=== PATIENT | male | born 1990 | race Hispanic/Latino ===

== ENCOUNTER 2023-03-28 09:36 | Inpatient (IN) | payer SELFPAY ==
[2023-03-28] MEDS ORDERED: INSULIN REGULAR IN 0.9 % NACL 100 UNITS/100 ML BAG ONE (09:49)
[2023-03-28] MEDS ORDERED: NS 0.9% w/ 20 MEQ KCL 1,000 ML ONE (09:57)
[2023-03-28] MEDS ORDERED: D5 1/2 NS w/20 mEq KCL 1,000 ML ONE (11:05)
[2023-03-28 11:35] LABS: Hemoglobin 14.1 g/dL (14.0-18.0); Mean Corpuscular HGB CONC 34.4 g/dL (32.0-36.0); Mean Corpuscular Hemoglobin 30.7 pg (27.0-31.0); Mean Corpuscular Volume 89.3 fl (78.0-98.0); Mean Platelet Volume 7.7 fL (7.4-10.4); Platelet Count 338 10x3/uL (130-400); RBC Distribution Width 12.2 % (11.5-14.5); White Blood Cell (WBC) Count 25.5 10x3/uL (4.8-10.8)
[2023-03-28] MEDS ORDERED: Dextrose 50% Abboject 50 ML SYRINGE SLOW IVP PRN (11:35)
[2023-03-28] MEDS ORDERED: Electrolyte Replacement Protocol IVPB SCH (11:35)
[2023-03-28] MEDS ORDERED: Dextrose 5 %-0.45 % NaCl 1,000 ML IV PRN (11:35)
[2023-03-28 11:36] LABS: Bacteria/HPF None Seen HPF (None Seen); Bilirubin Negative (Negative); Blood, Urine 1+ (Negative); Clarity Clear (Clear); Glucose, Urine (Dipstick) Greater than 1000 mg/dL (Negative); Ketone, Urine Greater than 150 mg/dL (Negative); Leukocyte Negative Leu/uL (Negative); Nitrite Negative (Negative); Protein, Urine (Dipstick) 30 mg/dL (Neg-Trace); RBC/HPF 0-3 HPF (0-3); Specific Gravity, Urine 1.018 (1.002-1.036); Squamous Epithelial None Seen HPF (0-3); Urobilinogen Normal mg/dL (Less than 2); WBC/HPF 0-3 HPF (0-3)
[2023-03-28] MEDS ORDERED: Calcium Carbonate 500 MG ChewTAB PO PRN (11:37)
[2023-03-28] MEDS ORDERED: Ondansetron PF 4 MG/2 ML Vial IVP PRN (11:37)
[2023-03-28] MEDS ORDERED: Acetaminophen 325 MG TAB PO PRN (11:37)
[2023-03-28] MEDS ORDERED: Ondansetron ODT 4 MG TAB PO PRN (11:37)
[2023-03-28] MEDS ORDERED: HUMULIN R 100 UNITS in Sodium Chloride 0.9% 100 ML IVPB SCH (11:45)
[2023-03-28 11:47] LABS: Phosphorus 2.7 mg/dL (2.3-4.7)
[2023-03-28 11:48] LABS: BUN (Urea Nitrogen) 19 mg/dL (8.9-20.6); Calc. Creatinine Clearance 0 mL/min (70-130); Calcium 7.9 mg/dL (7.8-10.44); Chloride 111 mmol/L (98-107); Estimated GFR 86; Glucose 195 mg/dL (70-105); Magnesium 1.9 mg/dL (1.6-2.6); Potassium 4.7 mmol/L (3.5-5.1); Sodium 136 mmol/L (136-145)
[2023-03-28 12:05] LABS: Carbon Dioxide Less than 8 mmol/L (22-29)
[2023-03-28 12:11] LABS: Band 10 % (5-11); Lymphocytes 7 % (21-51); MDiff Complete? YES; Monocytes 6 % (0-10); Neutrophil 77 % (42-75); Platelet Morphology Comment Appears Adequate; RBC Morphology Normal
[2023-03-28] MEDS ORDERED: Magnesium 2 GM/50 ML(in water) 2 GM in Premix Bag 1 BAG IVPB SCH (12:30)
[2023-03-28 12:41] LABS: Base Excess -27.5 mEq/L (-2.0 to +3.0); Calcium, Ionized (venous) 1.16 mmol/L (1.16-1.32); Chloride (VBG) 109 mmol/L (98-106); Hematocrit-VBG 45 % (42.0-52.0); Hemoglobin (Hb) 15.4 g/dL (13.2-17.3); Sodium 139.1 mmol/L (133-146)
[2023-03-28 12:47] LABS: Actual Bicarbonate (HCO3v) 6.1 mEq/L (22-28)
[2023-03-28] MEDS: D5 1/2 NS w/20 mEq KCL 1,000 ML IV PRN ×2 (15:35→19:25)
[2023-03-28 16:44] LABS: Anion Gap 16 mmol/L (10-20); BUN (Urea Nitrogen) 13 mg/dL (8.9-20.6); Calc. Creatinine Clearance 0 mL/min (70-130); Calcium 8.1 mg/dL (7.8-10.44); Chloride 111 mmol/L (98-107); Estimated GFR 93; Glucose 249 mg/dL (70-105); Potassium 4.2 mmol/L (3.5-5.1); Sodium 132 mmol/L (136-145)
[2023-03-28 16:51] LABS: Carbon Dioxide 9 mmol/L (22-29)
[2023-03-28] MEDS: Famotidine 20 MG TAB PO SCH (19:32)
[2023-03-28 20:48] LABS: Anion Gap 7 mmol/L (10-20); BUN (Urea Nitrogen) 9 mg/dL (8.9-20.6); Calc. Creatinine Clearance 103 mL/min (70-130); Calcium 7.8 mg/dL (7.8-10.44); Carbon Dioxide 16 mmol/L (22-29); Chloride 111 mmol/L (98-107); Estimated GFR 96; Glucose 331 mg/dL (70-105); Potassium 3.7 mmol/L (3.5-5.1); Sodium 130 mmol/L (136-145)
[2023-03-28 21:00] LABS: Phosphorus 1.1 mg/dL (2.3-4.7)
[2023-03-28] MEDS ORDERED: Famotidine/PF 20 mg/2ml Vial SLOW IVP SCH (21:00)
[2023-03-28] MEDS ORDERED: Insulin Regular 300 UNITS/3 ML VIAL SC PRN (21:11)
[2023-03-28] MEDS ORDERED: Dextrose 5% in Water 1,000 ML IV PRN (21:11)
[2023-03-28] MEDS ORDERED: NPH, Human Insulin Isophane 300 UNITS/3 ML VIAL SC SCH (21:30)
[2023-03-29] MEDS: 1/2 NS w/KCL 20 mEq 1,000 ML IV SCH ×3 (01:30→09:08)
[2023-03-29 04:57] LABS: Hemoglobin 12.2 g/dL (14.0-18.0); Mean Corpuscular HGB CONC 31.8 g/dL (32.0-36.0); Mean Corpuscular Hemoglobin 28.1 pg (27.0-31.0); Mean Corpuscular Volume 88.3 fl (78.0-98.0); Mean Platelet Volume 7.4 fL (7.4-10.4); Platelet Count 296 10x3/uL (130-400); RBC Distribution Width 12.4 % (11.5-14.5); Red Blood Cell (RBC) Count 4.36 mill/uL (4.70-6.10)
[2023-03-29 05:03] LABS: Anion Gap 11 mmol/L (10-20); BUN (Urea Nitrogen) 8 mg/dL (8.9-20.6); Calc. Creatinine Clearance 125 mL/min (70-130); Calcium 7.9 mg/dL (7.8-10.44); Carbon Dioxide 16 mmol/L (22-29); Chloride 110 mmol/L (98-107); Estimated GFR 117; Glucose 170 mg/dL (70-105); Magnesium 1.9 mg/dL (1.6-2.6); Phosphorus 2.1 mg/dL (2.3-4.7); Potassium 3.7 mmol/L (3.5-5.1); Sodium 133 mmol/L (136-145)
[2023-03-29 05:23] LABS: Hemoglobin A1c 10.4 % (4.0-6.0)
[2023-03-29] MEDS ORDERED: Insulin Regular 300 UNITS/3 ML VIAL SC PRN (06:54)
[2023-03-29] MEDS ORDERED: Magnesium 2 GM/50 ML(in water) 2 GM in Premix Bag 1 BAG IVPB SCH (08:00)
[2023-03-29] MEDS ORDERED: NPH, Human Insulin Isophane 300 UNITS/3 ML VIAL SC SCH ×2 (09:00)
[2023-03-29] MEDS ORDERED: Insulin NPH Human Isophane 100 UNITS/ML (10 ML VIAL) SC SCH (09:00)
[2023-03-29] MEDS: Famotidine 20 MG TAB PO SCH (09:07)
[2023-03-29 09:20] LABS: Band 11 % (5-11); Eosinophils 1 % (0-10); Lymphocytes 22 % (21-51); MDiff Complete? YES; Monocytes 6 % (0-10); Neutrophil 60 % (42-75); Platelet Morphology Comment Appears Adequate; Polychromasia SLIGHT = 2-3 cells (100X) (0-2/hpf); White Blood Cell (WBC) Count 9.8 10x3/uL (4.8-10.8)
[2023-03-29 11:53] VITALS: BMI 24.7
[2023-03-29 12:37] VITALS: TEMP 98.2
[2023-03-29 15:13] VITALS: BP 117/70
== END 2023-03-29 16:08 | disposition home or self-care (01) | DRG 638 ==
LOC: ERS 09:36 → ERHOLD 11:09 → IMCU/EMU 13:47
PROVIDERS: ADMIT Internal Medicine; ATTEND Internal Medicine
PROC: 4A033R1 Measurement of Arterial Saturation, Peripheral, Percutaneous Approach (ICD-10-PCS; principal; 2023-03-28)
DX: E11.10 Type 2 diabetes mellitus with ketoacidosis without coma (principal); E87.1 Hypo-osmolality and hyponatremia; N17.9 Acute kidney failure, unspecified; E86.0 Dehydration; Z79.4 Long term (current) use of insulin; E83.39 Other disorders of phosphorus metabolism
CPT/HCPCS: 36415; 36416; 80048; 82805; 83036; 83735; 84100; 85025; 96361; 96365; 96366; J1815; J3475; J3480; J7030; S0028